=== PATIENT | female | born 1970 | race Hispanic/Latino ===

== ENCOUNTER 2016-10-28 20:04 | Emergency (ER) | payer OTHER ==
[~2016-10-28] VITALS: Ht 152.4 cm; Wt 106.8 kg
[~2016-10-28 20:04] MED LIST: WEL75 PO
[2016-10-28 20:06] VITALS: BP 144/81; PULSE 101; RESP 16; O2SAT 100
--- NOTE | 2016-10-28 20:32 | ED.REPORT ---
HPI-Abd Pain F 40 and Over Date of Service Oct 28, 2016 ED Provider: Doc,Ed MD The patient is a 46 year old female who presents to the emergency department complaining of lower abdominal pain that has been ongoing throughout the entire day. She noticed some pain last night but her pain has worsened throughout the day today. She has tried ibuprofen and Midol with minimal relief. She has also noticed a "sharp" pain with urination or defecation. She denies lower back pain , flank pain, fever, chills, vomiting, diarrhea, dizziness or weakness. She has not had similar symptoms in the past. She denies history of urinary tract infections. Nursing Notes Stated Complaint: ABDOMINAL PAIN Chief Complaint: Female Abdominal Pain Nursing Notes Reviewed: Yes Allergies: Coded Allergies: No Known Allergies (Verified , 10/28/16) Scheduled Bupropion-Expunged Drug, Do Not Renew! (Bupropion-Expunged Drug, Do Not Renew!) 75 Mg Tablet 75 MG PO DAILY TAKE WITH FOOD Ciprofloxacin (Cipro) 500 Mg Tablet 500 MG PO BID Ciprofloxacin (Cipro) 500 Mg Tablet 500 MG PO BID Ferrous Sulfate (Ferrous Sulfate) 325 Mg Tablet 325 MG PO BID Metronidazole (Flagyl) 500 Mg Tablet 500 MG PO TID Scheduled PRN Hydrocodone-Acetaminophen 5-325 mg (Hydrocodone-Acetaminophen 5-325 mg) 1 Each Tablet 1 TABLET PO Q4H PRN PRN For Pain Phenazopyridine (Phenazopyridine) 200 Mg Tablet 200 MG PO TID PRN PRN For Pain General Time Seen by MD: 20:31 Chief Complaint Abdominal pain Hx Obtained From: Patient Arrived By: Walk-in Sudden in Onset?: Yes Onset Occurred: 13 - 16 hours ago Symptom Duration: Since onset Progression since Onset: Constant Location: : Abdomen lower: Suprapubic Quality: Painful Radiation: : Does not radiate Severity: Current: Moderate Severity: Maximum: Moderate Pertinent Negative: Pt denies other symptoms Recent Healthcare: No recent doctor visit, No recent hospitalization Similar Sx Previous: No Past Medical History Past Medical History Hx of anemia Family History Noncontributory Smoking History Unknown if Ever Smoker Social History Other Social History: Good social support, Local resident Ambulatory Status Independent Review of Systems +sharp pain with urination and defecation Constitutional: Denies: Chills, Fever GI: Reports: Abdominal pain, Denies: Diarrhea, Vomiting Female: Denies: Flank pain Musculoskeletal: Denies: Back pain Complete sys rev & neg: except as marked. Physical Exam Vital Signs Initial VS: Reviewed Head / Eyes: Atraumatic, Normocephalic, PERRL ENT: Mucous membranes moist, Conjunctiva normal, No scleral icterus Neck: Supple, Non-tender, Full range of motion Lymphatic: No lymphadenopathy Extremities: Vascular intact, Neuro intact, No swelling, No tenderness Skin: Warm, Dry, No cyanosis Neurologic: Alert, Oriented, Nonfocal Psychiatric: Mood/affect normal, Behavior normal, Normal thought content General/Constitutional: Awake, Alert, No acute distress, Cooperative Respiratory / Chest: Atraumatic, Breath sounds NL, Breath sounds = bilat, No respiratory distress, No rales, No rhonchi, No wheezing, No stridor Cardiovascular: Heart rate NL, Regular rhythm, Heart sounds NL, No gallop, No murmurs, No rubs, Peripheral circulation NL Abdomen: Soft, No guarding, No rebound, BS normoactive, No distention, No hernia, No palpable mass, No pulsatile mass Tenderness/Guarding/Rebound: Positive: Tender suprapubic Back: Inspection NL, Non-tender, No midline vertebral tend, No CVA tenderness Rectum / Perineum: Atraumatic, Blood - occult heme -, No gross blood [employer] Vice President present. Interpretation & Diagnostics Lab Results Interpretation Test 10/28/16 20:20 10/28/16 20:34 White Blood Count 12.9th/mm3 (3.8-10.1) Red Blood Count 4.62mil/mm3 (3.90-5.20) Hemoglobin 7.7g/dL (12.0-15.6) Hematocrit 27.5% (35.0-46.0) Mean Corpuscular Volume 59.5fL (81-100) Mean Corpuscular Hemoglobin 16.7pg (27.0-35.0) Mean Corpuscular Hemoglobin Concent 28.0% (32.0-37.0) Red Cell Distribution Width 20.4% (12.3-15.4) Platelet Count 502bil/L (150-400) Neutrophils (%) (Auto) 70.8% (40-74) Lymphocytes (%) (Auto) 19.2% (14-46) Monocytes (%) (Auto) 9.0% (4-12) Eosinophils (%) (Auto) 0.3% (0-5) Basophils (%) (Auto) 0.2% (0-3) Sodium Level 135mEq/L (134-144) Potassium Level 4.1mEq/L (3.5-5.2) Chloride Level 99mEq/L (97-108) Carbon Dioxide Level 22mmol/L (18-29) Blood Urea Nitrogen 12mg/dL (6-24) Creatinine 0.62mg/dL (0.57-1.00) Estimat Glomerular Filtration Rate 150mL/min (>59) Glucose Level 130mg/dL (60-99) Calcium Level 9.5mg/dL (8.5-10.1) Magnesium Level 2.1mg/dL (1.6-2.6) Total Bilirubin 0.3mg/dL (0.0-1.2) Aspartate Amino Transf (AST/SGOT) 27U/L (0-50) Alanine Aminotransferase (ALT/SGPT) 33U/L (0-32) Alkaline Phosphatase 115U/L (25-150) Total Protein 7.4g/dL (6.4-8.4) Albumin 4.3g/dL (3.4-5.0) Lipase 41U/L (13-60) Hold Askew Top Tube Received (Received) Urine Color Yellow (YELLOW) Urine Appearance Cloudy (CLEAR,HAZY) Urine pH 7.5 (5.0-8.0) Urine Specific Dexter 1.010 (1.003-1.035) Urine Protein Tracemg/dL (NEG,TRACE) Urine Glucose (UA) Negativemg/dL (NEGATIVE) Urine Ketones Negativemg/dL (NEGATIVE) Urine Occult Blood Small (NEGATIVE) Urine Nitrite Negative (NEGATIVE) Urine Bilirubin Negative (NEGATIVE) Urine Urobilinogen Normalmg/dL (NORMAL) Urine Leukocyte Esterase Large (NEGATIVE) Urine RBC 3-10/hpf (0-2) Urine WBC >50/hpf (0-5) Urine Epithelial Cells Moderate/hpf (NONE-MOD) Urine Crystals None seen (NONE SEEN) Urine Bacteria Many/hpf (NONE-FEW) Urine Hyaline Casts None/lpf (NONE) Urine Granular Casts None seen (NONE SEEN) Urine Waxy Casts None seen (NONE SEEN) Urine Red Blood Cell Casts None seen (NONE SEEN) Urine White Blood Cell Casts None seen (NONE SEEN) Urine Mucus None seen (None Seen) Urine Trichomonas None seen (NONE SEEN) Urine Yeast None (NONE SEEN) Urinalysis Comment None Urine Culture Reflexed Indicated CT Abd / Pelvis Interpretation IMPRESSION: 1. Cause of patients anemia and pelvic pain is not identified. There are scattered diverticula. There was considered to be some minimal stranding near the sigmoid colon and adjacent to the right ovary but this does not fit with the clinical situation. Following discussion with Dr. Vogt was decided that this was not a genuine finding appendix is normal. Uterus is normal. The ovaries bilaterally show cysts the largest is 24 mm on the right and is consistent with a dominant follicle. Dictated by: William Trevizo M.D. on 10/28/2016 at 21:36 Interpretation / Wet Read by: Interpret - Radiologist, Discussed w radiologist Re-Eval/Medical Decision Med Decision/Clinical Course 46-year-old female with no known history of diverticulitis presents with suprapubic abdominal pain, leukocytosis, tachycardia, and a dirty urine consistent with UTI. She was found to be incidentally anemic at 7.7. She had a negative guaiac and has not noted any blood in her stools or urine. Her periods are quite heavy and it has been discussed in the past the idea of control to help alleviate her heavy periods. She notes feeling generally weak over the past month or so. In light of the abdominal pain in the anemia I elected to do an abdominal CT scan which showed some possible concern for diverticulitis. When I discussed it with the radiologist I felt was able to explain all of her symptoms with a UTI. However on repeat examination of her abdomen there was no longer suprapubic tenderness, but only left lower quadrant tenderness. Given the findings of the CT scan I elected to treat her with Cipro and Flagyl which would cover both the UTI and diverticulitis. Patient understands and agrees with this plan. Although she meets criteria for sepsis she does look very well and there is no evidence of acute bleeding. I have asked her to follow-up in short order within the next week with her PCP Source of Hx: Old records, Family Re-Evaluation/Progress #1: Time of Eval: 20:45 Re-Evaluation/Progress Note: Discussed lab results and plan for workup. The patient has felt generally weak over the last few weeks. She denies bloody stools, tarry stools or hematuria. The patient reports very heavy bleeding with her menstrual cycles. Her LNMP was about 10 days ago. She also mentions some history of anemia but does not know any further details. Discussed plan for CT scan and need for rectal exam. Re-Evaluation/Progress #2: Time of Eval: 22:03 Re-Evaluation/Progress Note: Rechecked the patient. Discussed CT findings, diagnosis, and plan for discharge. All questions were addressed. Counseled Regarding: Diagnosis, Lab results, Need for follow-up, When/why to return to ED Discharge & Departure Primary Impression: Diverticulitis Diverticulitis site: unspecified part of intestinal tract Diverticulitis bleeding: without bleeding Diverticulitis complication: without perforation or abscess Qualified Code: K57.92 - Diverticulitis of intestine, part unspecified, without perforation or abscess without bleeding Additional Impressions: Urinary tract infection Urinary tract infection type: site unspecified Hematuria presence: with hematuria Qualified Code: N39.0 - Urinary tract infection, site not specified Iron deficiency anemia Iron deficiency anemia type: unspecified iron deficiency Qualified Code: D50.9 - Iron deficiency anemia, unspecified Sepsis Sepsis type: sepsis due to unspecified organism Qualified Code: A41.9 - Sepsis, unspecified organism Disposition: Home Discharge Condition All VS Reviewed: Yes Condition: Stable Patient Instructions: Urinary Tract Infection in Women (ED) Additional Instructions: Thank you for entrusting us with your care today. Your symptoms are consistent with a urinary tract infection. I have given you your first dose of antibiotics and IV fluids in the emergency department today. supplier quality engineer your prescription tomorrow and take it as prescribed for 10 days. I have also given you a prescription for Pyridium which will help with your pain. Make sure to drink plenty of fluids. I have also written you a prescription for a different antibiotic called Flagyl for diverticulitis.You will need to take this 4 times daily. Do not drink alcohol while taking this medication. You also need to start taking iron for the anemia. You can talk to your regular doctor about options to get rid of your periods. Seek care for any new or concerning symptoms. Referrals: Emeka Murphy MD (PCP) Scribe Attestation Portions of this note were transcribed by Arlette Nelson. Dr. Sin Mohamud personally performed the history, physical exam and medical decision-making; I reviewed and confirmed the accuracy of the information in the transcribed note. Signed by: Rei Bonner, 10/28/2016 at 2210. copies to: Emeka Murphy MD, Gary R DO Oct 28, 2016 20:32 Arlette Nelson Oct 28, 2016 20:37
[2016-10-28 20:34] LABS: BASOPHILS % (AUTO) 0.2 % (0-3); Mean Corpuscular Hemoglobin 16.7 pg (27.0-35.0); Mean Corpuscular Volume 59.5 fL (81-100)
[2016-10-28 20:37] LABS: EOSINOPHILS % (AUTO) 0.3 % (0-5); NEUTROPHILS % (AUTO) 70.8 % (40-74); Platelet Count 502 bil/L (150-400)
[2016-10-28 20:46] LABS: APPEARANCE,URINE CLOUDY (CLEAR,HAZY); COLOR,URINE YELLOW (YELLOW); OCCULT BLOOD,URINE SMALL (NEGATIVE); PH,URINE 7.5 (5.0-8.0); UROBILINOGEN,URINE NORMAL (NORMAL)
[2016-10-28] MEDS ORDERED: cefTRIAXone Inj 1,000 MG in Dextrose 5% Minibag Plus 50 ML IV ONE (20:50)
[2016-10-28 20:57] LABS: Magnesium 2.1 mg/dL (1.6-2.6)
[2016-10-28] MEDS ORDERED: HYDROmorphone 0.5 mg/0.5 mL iSecure Syringe IVPUSH PRN (21:00)
--- NOTE | 2016-10-28 21:51 | DRSVH ---
PROCEDURE: CT ABDOMEN AND PELVIS WITH CONTRAST ([id number]) INDICATIONS: Lower abdominal pain, anemia TECHNIQUE: After the administration of intravenous contrast, 5 mm thick sections acquired from the diaphragm to the symphysis. 5 mm coronal and sagittal reformats were acquired. For radiation dose reduction, the following was used: automated exposure control, adjustment of mA and/or kV according to patient siz e. COMPARISON: None. FINDINGS: Image quality: Excellent. ABDOMEN: Lung bases: Lung bases are clear. Heart size is normal. Solid organs: Liver and spleen are normal in size and enhancement. Gallbladder is within normal harrell its.. Biliary system is non dilated. Pancreas enhances normally. No adrenal nodules. Kidneys demo nstrate normal size and enhancement, without hydronephrosis. Peritoneum and bowel: Bowel loops demonstrate normal wall thickness and caliber. No free fluid or a ir. The appendix is normal. Nodes and vessels: No retroperitoneal or mesenteric adenopathy by size criteria. Aorta and inferior vena cava are normal in size. Miscellaneous: There is a small fatty umbilical hernia. PELVIS: Genitourinary: Bladder wall thickness is normal. Uterus and ovaries are considered normal in size w ith a cyst or dominant follicle 2.4 cm in diameter on the right. The no free fluid is seen. Miscellaneous: No inguinal hernias or adenopathy. Bones: No suspicious bony lesions. No vertebral body compression fractures. IMPRESSION: 1. Cause of patients anemia and pelvic pain is not identified. There are scattered diverticula. There was considered to be some minimal stranding near the sigmoid colon and adjacent to the right ovary b ut this does not fit with the clinical situation. Following discussion with Dr. Vogt was decided t hat this was not a genuine finding appendix is normal. Uterus is normal. The ovaries bilaterally show cysts the largest is 24 mm on the right and is consistent with a dominant follicle. Dictated by: William Trevizo M.D. on 10/28/2016 at 21:36 Approved by: William Trevizo M.D. on 10/28/2016 at 21:49
[2016-10-28] MEDS ORDERED: 0.9% Sodium Chloride 1,000 ML IV ONE (21:55)
[2016-10-28] MEDS ORDERED: FERR-83 PO (21:59)
[2016-10-28] MEDS ORDERED: CIPR-231 PO ×2 (21:59→22:27)
[2016-10-28] MEDS ORDERED: PHEN-777 PO (21:59)
[2016-10-28] MEDS ORDERED: _HYDROcodone/APAP 5-325 mg Tablet PO PRN (22:25)
[2016-10-28] MEDS ORDERED: METR500T PO (22:27)
[2016-10-28] MEDS ORDERED: HYDR-4003 PO (22:27)
[2016-10-28 23:19] VITALS: BP 102/59; PULSE 79; RESP 14; O2SAT 97
[2016-10-28 23:41] VITALS: BP 102/59; PULSE 79; RESP 14; O2SAT 97
== END 2016-10-28 23:41 | disposition home or self-care (01) ==
LOC: SED 20:04
DX: N39.0 Urinary tract infection, site not specified (principal); D50.9 Iron deficiency anemia, unspecified; A41.9 Sepsis, unspecified organism; K57.92 Diverticulitis of intestine, part unspecified, without perforation or abscess without bleeding; B96.20 Unspecified Escherichia coli [E. coli] as the cause of diseases classified elsewhere
CPT/HCPCS: 36415; 74177; 80053; 81000; 81025; 83690; 83735; 85025; 87086; 87088; 87186; 96365; 96375; 99285; J0696; J1170; J7030; Q9967